=== PATIENT | female | born 1995 | race Caucasian/White ===

== ENCOUNTER → 2018-01-18 | Outpatient (CLI) | payer BC ==
[~2018-01-18] MED LIST: ATOR10TA24 PO; CETI-176 PO; FLUT16SP19 NS; MONT10TA PO; SUMA25TA26 PO
== END ==
LOC: LAB 14:06
PROVIDERS: ATTEND Obstetrics & Gynecology
DX: Z83.49 Family history of other endocrine, nutritional and metabolic diseases (principal)
CPT/HCPCS: 36415; 84439; 84443; 84481